=== PATIENT | male | born 2005 | race Hispanic/Latino ===

== ENCOUNTER 2024-09-18 21:52 | Emergency (ER) | payer SELFPAY ==
[~2024-09-18] VITALS: Ht 180.3 cm; Wt 70.3 kg
[2024-09-18 22:14] LABS: BASOPHILS # (AUTO) 0.03 K/uL (0.00-0.20); BASOPHILS % (AUTO) 0.5 % (0.0-5.0); HEMATOCRIT 46.4 % (42-54); IMMATURE GRANULOCYTE ABSOLUTE 0.02 K/uL (0-1); LYMPHOCYTES # (AUTO) 1.9 K/uL (1.0-4.8); LYMPHOCYTES % (AUTO) 34.3 % (21.0-51.0); MEAN CORPUSCULAR HGB CONC 34.9 g/dL (32.0-36.0); MEAN CORPUSCULAR VOLUME 80.1 fL (80-100); MONOCYTES # (AUTO) 0.3 K/uL (0.1-1.0); NEUTROPHILS # (AUTO) 3.4 K/uL (1.8-7.7); NEUTROPHILS % (AUTO) 59.8 % (40.0-77.0); PLATELET COUNT (AUTO) 188 K/uL (130-400); RED BLOOD CELL COUNT(AUTO) 5.79 MIL/uL (4.50-6.20); RED CELL DISTRIBUTION WIDTH 11.9 % (11.0-15.5); WHITE BLOOD COUNT (AUTO) 5.6 K/uL (4.8-10.8)
[2024-09-18] MEDS: 0.9%NACL 1000ML 2,109 ML IV ONE (22:22)
[2024-09-18] MEDS: acetaMINOPHEN 500 MG TABLET PO ONE (22:22)
[2024-09-18 22:38] LABS: CREATININE 1.4 mg/dL (0.5-1.3); POTASSIUM 3.1 mmol/L (3.5-5.1)
[2024-09-18] MEDS: PoTASSium BIcarbonate/CIT AC 25 MEQ TABLET.EFF PO STA (23:06)
[2024-09-18 23:08] VITALS: TEMP 99.5
[2024-09-18 23:25] LABS: RAPID GROUP A STREP negative (NEGATIVE)
[2024-09-18 23:32] LABS: ADD UA MICROSCOPIC YES; APPEARANCE,URINE CLEAR (CLEAR); BILIRUBIN,URINE NEGATIVE (NEGATIVE); COLOR,URINE YELLOW (YELLOW); GLUCOSE, URINE (UA) NEGATIVE (NEGATIVE); KETONES,URINE NEGATIVE (NEGATIVE); LEUKOCYTE ESTERASE ,URINE NEGATIVE Leu/uL (NEGATIVE); NITRATE,URINE NEGATIVE (NEGATIVE); OCCULT BLOOD,URINE NEGATIVE (NEGATIVE); PH,URINE 6.5 (5.0-8.0); PROTEIN,URINE 30 mg/dL (NEGATIVE); UROBILINOGEN,URINE 3 mg/dL (0.2-1.0)
[2024-09-18 23:33] LABS: SARS-CoV-2, RNA, NAAT NEGATIVE SARS CoV-2 (NEGATIVE)
[2024-09-18 23:33] LABS: MUCUS,URINE RARE LPF (None Seen); RBC,URINE 0-1 /HPF (0-1); SQUAMOUS EPITHELIAL CELL,UR RARE /HPF (0-2); WBC,URINE 0-1 /HPF (0-1)
[2024-09-18 23:36] LABS: INFLUENZA TYPE A Negative For Type A (NEGATIVE); INFLUENZA TYPE B Negative For Type B (NEGATIVE)
--- NOTE | 2024-09-19 01:01 | ERN ---
ED Note History of Present Illness Stated Complaint: FEVER, GBW Chief Complaint: Sepsis Time Seen by MD: 22:03 Time Seen by Midlevel: 22:10 Dictation: 19-year-old male coming in with complaint of fever, and body aches, and dizziness for three days. Patient denies having any sick contacts however states earlier in the week when it was called he was outside playing basketball thinks he got sick since then. Denies having any medical or surgical problems. Upon triage vital signs patient has a fever and is tachycardic. Sepsis alert and sepsis workup initiated. Allergies: Coded Allergies: No Known Allergies (Unverified Allergy, Unknown, 09/18/24) Past Medical History Past Medical History: No Pertinent History Surgical History: None Review of System Dictation Constitutional: Complaining of fever, chills and body aches Eyes: Negative for injury, pain,redness, and discharge ENT: Negative for injury,pain or swelling Cardiovascular: Negative for chest pain, palpitations, and edema Respiratory: Negative for shortness of breath, cough, and wheezing, Abdomen/GI: Negative for abdominal pain, nausea, vomiting, diarrhea, and constipation Back: Negative for injury and pain : Negative for injury, bleeding and discharge MS/Extremity: Negative for injury and deformity Skin: Negative for rash, and discoloration Neuro: Negative for headache, weakness, numbness, tingling, and seizure Psych: Negative for suicide ideation, homicidal ideation, and hallucinations Review of Systems: was completed Initial Vital Sign VS Vital Signs Date Time Temp Pulse Resp B/P (MAP) Pulse Ox O2 Delivery O2 Flow Rate FiO2 09/18/24 21:53 103.3 150 24 145/89 100 Room Air 09/18/24 22:34 0 21 Physical Exam Dictation General: awake, alert, NAD Head/Face: Normocephalic, atraumatic Eyes: PERRL, EOMI, vision at baseline ENT: oral cavity clear, TMs clear, no signs of infection Neck: Trachea midline, supple, no nuchal rigidity Cardiovascular: RRR, normal S1/S2, No MRGs, no JVD Respiratory: CTAB, no respiratory distress, No rales or wheezes Abdomen: Soft, non-tender, non-distended, normal bowel sounds, no guarding or rebound. Skin: Warm, dry, normal turgor, no rash MS/Extremity: Pulses equal, no cyanosis, neurovascular intact, FROM Neuro: COAx4, GCS 15, strength 5/5, CN 2-12 intact, normal cerebellar exam, normal gait, Psych: Normal behavior, mood, and affect normal Results (Laboratory/Radiology) Laboratory/Radiology Laboratory Tests Test 09/18/24 22:02 09/18/24 23:09 09/18/24 23:22 09/19/24 00:35 White Blood Count 5.6 K/uL (4.8-10.8) Red Blood Count 5.79 MIL/uL (4.50-6.20) Hemoglobin 16.2 g/dL (14.0-18.0) Hematocrit 46.4 % (42-54) Mean Corpuscular Volume 80.1 fL (80-100) Mean Corpuscular Hemoglobin 28.0 pg (27.0-33.0) Mean Corpuscular Hemoglobin Concent 34.9 g/dL (32.0-36.0) Red Cell Distribution Width 11.9 % (11.0-15.5) Platelet Count 188 K/uL (130-400) Mean Platelet Volume 10.4 fL (7.5-10.5) Immature Granulocyte % (Auto) 0.4 % (0-1) Neutrophils (%) (Auto) 59.8 % (40.0-77.0) Lymphocytes (%) (Auto) 34.3 % (21.0-51.0) Monocytes (%) (Auto) 5.0 % (3.0-13.0) Eosinophils (%) (Auto) 0.0 % (0.0-8.0) Basophils (%) (Auto) 0.5 % (0.0-5.0) Neutrophils # (Auto) 3.4 K/uL (1.8-7.7) Lymphocytes # (Auto) 1.9 K/uL (1.0-4.8) Monocytes # (Auto) 0.3 K/uL (0.1-1.0) Eosinophils # (Auto) 0.00 K/uL (0.00-0.70) Basophils # (Auto) 0.03 K/uL (0.00-0.20) Absolute Immature Granulocyte (auto 0.02 K/uL (0-1) Nucleated Red Blood Cells 0.0 % (0.0-0.19) Sodium Level 135 mmol/L (136-145) L Potassium Level 3.1 mmol/L (3.5-5.1) L Chloride Level 96 mmol/L (101-111) L Carbon Dioxide Level 27 mmol/L (21-32) Blood Urea Nitrogen 14 mg/dL (7-18) Creatinine 1.4 mg/dL (0.5-1.3) H Glomerular Filtration Rate Calc 74 mL/min (>90) Random Glucose 118 mg/dL (70-105) H Lactic Acid Level 3.9 mmol/L (0.8-2.5) H 1.9 mmol/L (0.8-2.5) Total Calcium 9.6 mg/dL (8.5-10.1) Total Creatine Kinase 196 U/L (21-232) Troponin I High Sensitivity 7 ng/L (4-75) Influenza Type A Antigen Negative For Type A Influenza Type B Antigen Negative For Type B SARS-CoV-2, RNA, NAAT NEGATIVE SARS CoV-2 Group A Streptococcus Rapid negative (NEGATIVE) Urine Color YELLOW (YELLOW) Urine Appearance CLEAR (CLEAR) Urine pH 6.5 (5.0-8.0) Urine Specific [place] 1.015 (1.001-1.031) Urine Protein 30 mg/dL (NEGATIVE) H Urine Glucose (UA) NEGATIVE mg/dL (NEGATIVE) Urine Ketones NEGATIVE mg/dL (NEGATIVE) Urine Occult Blood NEGATIVE (NEGATIVE) Urine Nitrate NEGATIVE (NEGATIVE) Urine Bilirubin NEGATIVE mg/dL (NEGATIVE) Urine Urobilinogen 3 mg/dL (0.2-1.0) H Urine Leukocyte Esterase NEGATIVE Carl/uL Urine RBC 0-1 /HPF (0-1) Urine WBC 0-1 /HPF (0-1) Urine Squamous Epithelial Cells RARE /HPF (0-2) Urine Bacteria None /HPF (None Seen) Labs Reviewed?: Yes EKG Comment: Date:09/18/24 Time:2200 Ventricular rate:133 SD interval:122 QRS duration:164 QT/QTc:292/434 EKG interpretation: Sinus tachycardia, probable right ventricular hypertrophy Reviewed by ED Attending no STEMI interpreted by ER ED Course ED Course Orders Procedure Category Date Status Time Iv Insertion CPOE 09/18/24 Transmitted 22:00 Pulse Ox(Continuous) RT 09/18/24 Transmitted 22:00 Vital Signs Per CPOE 09/18/24 Transmitted Routine 22:00 12 Lead Ekg Tracing- EKG 09/18/24 Logged Technical 22:00 Cbc With Differential LAB 09/18/24 Complete 22:00 Creatine Kinase, Total LAB 09/18/24 Complete 22:00 Troponin I High LAB 09/18/24 Complete Sensitivity 22:00 Lactic Acid LAB 09/18/24 Complete 22:00 Basic Metabolic Panel LAB 09/18/24 Complete 22:00 Acetaminophen 500mg PHA 09/18/24 Complete Tab (Tylenol 500mg T 22:00 Blood Cult JUAN 09/18/24 In Process 22:07 Urinalysis Profile LAB 09/18/24 Complete 22:07 Covid Rna Naat LAB 09/18/24 Complete 22:11 Rapid (Group A Strep) LAB 09/18/24 Complete 22:11 0.9%Nacl 1000ml (Ns PHA 09/18/24 In Process 1000ml) 22:30 Influenza Type A & B, LAB 09/18/24 Complete Rapid 22:11 Potassium Bicarb/Cit PHA 09/18/24 Complete Ac 25meq (K-Lyte Ta 22:46 Lactic Acid LAB 09/19/24 Complete 00:29 Current Medications Medications (Trade) Dose Ordered Sig/Zana Route PRN Reason Start Time Stop Time Status Last Admin Dose Admin Acetaminophen (TYLenol 500MG TAB) 1,000 mg ONCE ONCE PO 09/18/24 22:00 09/18/24 22:02 DC 09/18/24 22:22 Potassium Bicarbonate (K-Lyte Tablet Eff 25 Meq Tablet.eff) 25 meq ONCE STAT PO 09/18/24 22:46 09/18/24 22:48 DC 09/18/24 23:06 Sodium Chloride 2,109 ml @ 703 mls/hr ONCE ONCE IV 09/18/24 22:30 09/19/24 01:29 09/18/24 22:22 Vital Signs Date Time Temp Pulse Resp B/P (MAP) Pulse Ox O2 Delivery O2 Flow Rate FiO2 09/18/24 23:00 99.5 110 16 128/77 100 Room Air* 0 21 09/18/24 22:34 103.3 109 16 132/88 100 Room Air* 0 21 09/18/24 22:22 102.9 09/18/24 21:53 103.3 150 24 145/89 100 Room Air Medical Decision Making MDM MDM: 19-year-old male coming in with complaint of fever, and body aches, and dizziness for three days. Patient denies having any sick contacts however states earlier in the week when it was called he was outside playing basketball thinks he got sick since then. Denies having any medical or surgical problems. Upon triage vital signs patient has a fever and is tachycardic. Sepsis alert and sepsis workup initiated.CBC shows no leukocytosis, no anemia, no thrombocytopenia. Chemistry shows mild hyponatremia, mild hypokalemia. Fluids and potassium replacement given in the emergency room. Creatinine is slightly elevated at 1.4, could be related to dehydration. Initial lactic level is 3.9. After sepsis workup and fluids repeat lactic is 1.9. UA shows no evidence of urinary tract infection. Serology negative for flu and COVID. On reassessment patient states he feels much better. Educated patient most likely he has a respiratory virus and needs to follow up with PCP in 1-2 days. Educated to take Tylenol or Motrin [id number] to control the fever and return to the em ergency room as needed. Patient verbalized understanding, answered all questions. Differential diagnosis: Sepsis, viral syndrome, influenza, COVID, urinary tract infection Rationale: Tests considered and ordered secondary to shared decision making include: Previous outside records reviewed: Old ER visits. Risk of complication and/or morbidity or mortality of patient management: None Medications-Per medication reconciliation Need for hospitalization: Patient does not meet criteria for hospitalization. Need for emergency major/minor surgery: No There are no social concerns with this patient. Prescription drug management Prescriptions will include symptomatic care Patient's prior external medical records from other ER visits were reviewed by me as indicated. Prior testing and results from previous visits were reviewed. Prior tests were taken into account with medical decision making and resource utilization, independent historian/historians were used to obtain complete medical history. I independently interpreted the test that were performed, results were reviewed by me and considered findings on radiology if ordered. Medical management and examination interpretation discussions were had by me with other qualified healthcare professionals as indicated for the patient's care. DX & DISP Disposition: Discharge Departure Impression: Primary Impression: Viral syndrome Condition: Stable Additional Instructions: Take Tylenol or Motrin to control your fever. Follow up with PCP in 1-2 days. Return to the emergency room if symptoms worsen. Referrals: SELF,REFERRAL (PCP) Time of Disposition: 01:01 I have reviewed the case, and I agree with, Diagnosis and Plan CHET VIEIRA NP Sep 19, 2024 01:01
[2024-09-19 01:10] VITALS: BP 131/74; PULSE 99; RESP 16; TEMP 98.9; O2SAT 100
--- NOTE | 2024-09-19 06:57 | EKG ---
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
== END 2024-09-19 01:11 | disposition home or self-care (01) ==
LOC: EDH 21:52
DX: B34.9 Viral infection, unspecified (principal); Z20.822 Contact with and (suspected) exposure to COVID-19
CPT/HCPCS: 99285; 87635; 82550; 84484; 80048; 85025; 87040 ×2; 87880; 87804 ×2; 83605 ×2; 81001; 36415 ×2; 93005; J7030